=== PATIENT | female | born 1990 | race Caucasian/White ===

== ENCOUNTER 2021-12-23 15:48 | Emergency (ER) | payer SELFPAY ==
[2021-12-23 15:58] VITALS: BP 123/60; PULSE 83; RESP 18; TEMP 98.9; BMI 17.9
== END 2021-12-23 17:30 | disposition left against medical advice (07) ==
LOC: JER 15:48
DX: R21 Rash and other nonspecific skin eruption (principal)
CPT/HCPCS: 99281-25